=== PATIENT | male | born 1980 | race Caucasian/White ===

== ENCOUNTER 2020-01-25 20:27 | Emergency (ER) | payer OTHER ==
[~2020-01-25] VITALS: Ht 177.8 cm; Wt 83.9 kg
[2020-01-25 21:26] LABS: URINE BILIRUBIN NEGATIVE (Negative); URINE BLOOD NEGATIVE (Negative); URINE CLARITY CLEAR; URINE COLOR YELLOW; URINE GLUCOSE-RANDOM NEGATIVE (Negative); URINE KETONES TRACE (Negative); URINE LEUKOCYTES-REFLEX NEGATIVE (Negative); URINE NITRITE-REFLEX NEGATIVE (Negative); URINE PROTEIN NEGATIVE (Negative); URINE UROBILINOGEN 0.2 E.U./dl (0.2-1.0)
[2020-01-25 21:32] LABS: ABSOLUTE BASOPHILS 0.1 thou/uL (0.0-0.2); ABSOLUTE EOSINOPHILS 0.1 thou/uL (0.0-0.7); ABSOLUTE LYMPHOCYTES 1.6 thou/uL (0.8-5.3); ABSOLUTE MONOCYTES 1.2 thou/uL (0.0-1.2); ABSOLUTE NEUTROPHILS 12.4 thou/uL (1.6-8.1); BASOPHILS 0.3 %; EOSINOPHILS 0.4 %; HEMATOCRIT 42.4 % (42.0-52.0); HEMOGLOBIN 14.8 gm/dL (14.0-18.0); LYMPHOCYTES 10.6 %; MCH 31.2 pg (26.0-34.0); MCHC 34.8 g/dL (28.0-37.0); MCV 89.7 fL (80.0-100.0); MONOCYTES 7.9 %; MPV 7.5 fl. (7.2-11.1); NUCLEATED RBCS 0 /100WBC; PLATELET COUNT* 372 thou/uL (150-400); POLYS 80.8 %; RBC 4.73 mil/uL (4.50-6.00); RDW-CV 12.5 % (10.5-14.5); WBC 15.3 thou/uL (4.0-11.0)
[2020-01-25 21:36] LABS: CALCIUM 8.8 mg/dL (8.5-10.1); POTASSIUM 3.4 mmol/L (3.5-5.1)
[2020-01-25 21:36] LABS: AMP/METHAMP POSITIVE (Negative); BARBITURATES Negative (Negative); BENZODIAZEPINES Negative (Negative); COCAINE Negative (Negative); METHADONE Negative (Negative); OPIATES Negative (Negative); PCP Negative (Negative); THC Negative (Negative)
[2020-01-25 21:40] LABS: ALBUMIN 3.6 g/dL (3.4-5.0); TOTAL BILIRUBIN 0.3 mg/dL (<0.1-1.0); TOTAL PROTEIN 7.3 g/dL (6.4-8.2)
[2020-01-25 22:10] VITALS: BP 133/74
--- NOTE | 2020-01-30 14:59 | EKG ---
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
== END 2020-01-25 22:10 ==
LOC: M.ERS 20:27
PROVIDERS: Personal Emergency Response Attendant
DX: F41.9 Anxiety disorder, unspecified (principal); R06.4 Hyperventilation

== ENCOUNTER 2020-07-10 02:30 | Inpatient (IN) | payer OTHER ==
[~2020-07-10] VITALS: Ht 177.8 cm; Wt 88.5 kg
[2020-07-10 02:37] VITALS: BP 140/81
[2020-07-10] MEDS ORDERED: PROZAC20 M1 PO (02:39)
[2020-07-10] MEDS ORDERED: QUETIAPINE FUM100 MG PO (02:39)
[2020-07-10 03:02] LABS: ABSOLUTE EOSINOPHILS 0.3 thou/uL (0.0-0.7); ABSOLUTE LYMPHOCYTES 2.4 thou/uL (0.8-5.3); ABSOLUTE MONOCYTES 0.5 thou/uL (0.0-1.2); ABSOLUTE NEUTROPHILS 4.9 thou/uL (1.6-8.1); BASOPHILS 0.6 %; EOSINOPHILS 3.4 %; HEMATOCRIT 41.6 % (42.0-52.0); HEMOGLOBIN 14.6 gm/dL (14.0-18.0); LYMPHOCYTES 29.1 %; MCH 32.5 pg (26.0-34.0); MCHC 35.2 g/dL (28.0-37.0); MCV 92.1 fL (80.0-100.0); MONOCYTES 6.6 %; MPV 8.1 fl. (7.2-11.1); NUCLEATED RBCS 0 /100WBC; PLATELET COUNT* 234 thou/uL (150-400); POLYS 60.3 %; RBC 4.51 mil/uL (4.50-6.00); RDW-CV 12.8 % (10.5-14.5); WBC 8.2 thou/uL (4.0-11.0)
[2020-07-10 03:13] LABS: CALCIUM 7.9 mg/dL (8.5-10.1); CREATININE 0.9 mg/dL (0.6-1.3); POTASSIUM 3.9 mmol/L (3.5-5.1)
[2020-07-10 03:17] LABS: ALBUMIN 3.2 g/dL (3.4-5.0); TOTAL BILIRUBIN 0.3 mg/dL (<0.1-1.0); TOTAL PROTEIN 6.4 g/dL (6.4-8.2)
[2020-07-10 03:30] LABS: URINE BILIRUBIN NEGATIVE (Negative); URINE BLOOD NEGATIVE (Negative); URINE CLARITY CLEAR; URINE COLOR YELLOW; URINE GLUCOSE-RANDOM NEGATIVE (Negative); URINE KETONES TRACE (Negative); URINE LEUKOCYTES-REFLEX NEGATIVE (Negative); URINE NITRITE-REFLEX NEGATIVE (Negative); URINE PROTEIN NEGATIVE (Negative); URINE SPECIFIC GRAVITY 1.025 (1.005-1.030); URINE UROBILINOGEN 0.2 E.U./dl (0.2-1.0)
[2020-07-10 05:18] VITALS: BP 129/70
[2020-07-10 05:30] VITALS: BP 136/72
[2020-07-10 08:35] VITALS: BP 123/64
[2020-07-10 20:00] VITALS: BP 118/62
[2020-07-11 04:31] LABS: HEMATOCRIT 39.9 % (42.0-52.0); HEMOGLOBIN 14.3 gm/dL (14.0-18.0); MCH 32.8 pg (26.0-34.0); MCV 91.2 fL (80.0-100.0); MPV 8.2 fl. (7.2-11.1); RBC 4.37 mil/uL (4.50-6.00); RDW-CV 12.6 % (10.5-14.5); WBC 5.8 thou/uL (4.0-11.0)
[2020-07-11 05:03] LABS: CALCIUM 8.1 mg/dL (8.5-10.1); CREATININE 0.8 mg/dL (0.6-1.3); POTASSIUM 3.6 mmol/L (3.5-5.1); TOTAL BILIRUBIN 0.7 mg/dL (<0.1-1.0)
[2020-07-11 07:30] VITALS: BP 128/86
[2020-07-11] MEDS ORDERED: PHENERGAN 25 MG25 M1 PO (09:14)
--- NOTE | 2020-07-11 11:41 | EKG ---
[place] [address] ELECTROCARDIOGRAM REPORT Name: RADHA COTTO NISHA Room: [address] M.R.#: [id number] Admission: 07/10/20 Attend Phys: Trev Florez Discharge: Date of : 76 Date of Service: 07/10/20 0305 Report #: [id number] THIS REPORT FOR: //name// [facility] ED Test Date: 2020-07-10 Test Time: 03:05:54 Pat Name: RADHA COTTO Department: Room: [facility] Gender: M Rn Security: SHARI : 1980 Requested By: Misael Gomez Order Number: [id number] MD: Magnus Marshall Measurements Intervals [place] Rate: 75 P: 49 TX: 139 QRS: 58 QRSD: 100 T: 49 QT: 417 QTc: 466 Interpretive Statements Sinus rhythm Baseline wander in lead(s) V2 Compared to ECG 01/25/2020 20:30:50 No significant changes Electronically Signed On 07-11-2020 11:41:12 CDT by Magnus Marshall [email or web address] <ELECTRONICALLY SIGNED> By: Jonathna Marshall MD, [facility] 07/11/20 1141 0305 0305 Jonathan Marshall MD, [facility] /EPI
[2020-07-11 16:36] VITALS: BP 124/80
[2020-07-11 20:00] VITALS: BP 115/56
[2020-07-11 23:53] VITALS: BP 110/61
[2020-07-12 04:00] VITALS: BP 107/70
[2020-07-12 08:10] VITALS: BP 108/85
[2020-07-12] MEDS ORDERED: OXYCODONE HCL 55 MG PO (08:28)
[2020-07-12 10:44] VITALS: BP 108/85
--- NOTE | 2020-07-13 18:06 | PATH ---
[address] [address] PATHOLOGY RPT PROCEDURE Name: RADHA ALEJANDRO Room: [address] IN M.R.#: [id number] Admission: 07/10/20 Date of : 76 Discharge: 07/12/20 Report #: [id number] Path Case #: [id number] [facility] Accession Number: [id number] . 01 Material submitted: . gallbladder - GALLBLADDER AND CONTENTS . 01 Clinical history: . Cholecystitis . 02 Diagnosis: Gallbladder and contents: - Chronic cholecystitis and cholelithiasis. (NICOLE/db; 07/13/2020) LBQ 07/13/2020 1618 Local . 02 Electronically signed: . Carlos Abdul MD, Pathologist NPI- [id number] . 01 Gross description: . The specimen is received in formalin, labeled "Radha Alejandro, gallbladder and contents". Received is an intact gallbladder measuring 10.2 x 3.4 x 3.2 cm in greatest dimensions displaying a gonzalez-green serosal surface. Opening the specimen reveals a velvety, bile-stained mucosa with a gallbladder wall thickness of 0.1 cm. Calculi are present displaying a black and multifaceted appearance, and no masses or lesions are noted grossly. Personal Lines Insurance Agent sections, to include the proximal margin, are submitted in cassette A1. (CAA; 07/12/2020) QA/[facility] 07/12/2020 1520 Local . 02 Pathologist provided ICD-10: K80.10 . 02 CPT . 120145 Specimen Comment: A courtesy copy of this report has been sent to [phone] Specimen Comment: [phone] Specimen Comment: Report sent to / DR DÍAZ Performed at: [address] [id number] MD Franky Rivera MD Phone: [phone] Performed at: [address] [id number] [place] [address] PATHOLOGY RPT PROCEDURE Name: RADHA ALEJANDRO Room: [address] [place] IN M.R.#: [id number] Admission: 07/10/20 Date of : 76 Discharge: 07/12/20 Report #: [id number] Path Case #: [id number] MD Carlos Abdul MD Phone: [phone]
--- NOTE | 2020-07-14 21:18 | OP ---
[facility] [address] [place] [address] OPERATIVE REPORT Name: RADHA COTTO Room: [address] M.R.#: [id number] Admission: 07/10/20 Attend Phys: Prince Watts Discharge: 07/12/20 Date of : [birth year] Report #: [id number] THIS REPORT FOR: //name// cc: DENZEL Parks family physician/PCP DENZEL - Kasey family physician/PCP ~ THIS REPORT FOR: //name// CC: [facility] physician/PCP Trev Florez DATE OF SERVICE: 07/11/2020 PREOPERATIVE DIAGNOSIS: Acute cholecystitis. POSTOPERATIVE DIAGNOSIS: Acute cholecystitis. PROCEDURE: Laparoscopic cholecystectomy. INDICATIONS FOR PROCEDURE: The patient is a 39-year-old male who presented to the Emergency Department with epigastric pain following a greasy meal. History of present illness, physical exam and imaging were consistent with acute cholecystitis. Risks and benefits of surgery were explained in detail. Risks of bleeding, infection, damage to nearby structures including the common bile duct, hernia, and need for further operations were discussed in detail. The patient voiced understanding and agreed to proceed with surgery. DESCRIPTION OF PROCEDURE: The patient was taken to the operating theater and placed in the supine position. Bilateral SCDs were placed. Preoperative antibiotics were given. General anesthesia was induced without complication. The patient's abdomen was prepped and draped in the standard sterile fashion. Timeout was performed and all were in agreement. A supraumbilical incision was made using an 11 blade scalpel. Subcutaneous tissue was dissected using electrocautery and S retractors were used to bluntly dissect to the midline fascia. The midline fascia was appreciated, it was scored with electrocautery and elevated into the surgical field using Norman clamps. The abdomen was then entered bluntly using a hemostat. Fascial stay sutures were then placed using 0 Vicryl on either edge of the fascia. The Zay trocar was introduced and the abdomen was insufflated. The camera was then introduced and no injury to intraabdominal contents were visualized upon abdominal entry. The patient was then placed in the head up, left side down position. Subxiphoid 5 mm port was placed under direct visualization. Next, two more 5 mm ports were placed in the right subcostal position. The gallbladder was edematous and packed with stones. There were several omental adhesions. Using the physician's assistant port, the gallbladder fundus was grasped and elevated anteriorly and cephalad. Rafaela's pouch was then grasped and taken medially and cephalad. The lateral peritoneum of the gallbladder was taken down using electrocautery[place] [address] OPERATIVE REPORT Name: RADHA COTTO Room: [address] M.R.#: [id number] Admission: 07/10/20 Attend Phys: Prince Watts Discharge: 07/12/20 Date of : [birth year] Report #: [id number] were bluntly swept down off the gallbladder. Next, Rafaela's pouch was taken inferolaterally. The medial gallbladder peritoneum was taken down using electrocautery. With the assistance of a suction commissions analyst device, the fibrofatty tissue in the hepatocystic triangle was swept down. The cystic duct was identified and this was further dissected free from the fatty tissue. Once the fibrofatty tissue had been completely cleared from the hepato cystic triangle medially and laterally, the cystic duct and cystic artery were clearly seen. . There were only 2 structures entering the gallbladder. The liver could be seen in the hepatocystic triangle. We had obtained a critical view. Next, the cystic artery was clipped once proximally and once distally. The cystic duct was clipped twice proximally and once distally. The EndoShears were used to transect the cystic artery and cystic duct between the proximal and distal clips respectively. Next, Rafaela's pouch was taken cephalad and the gallbladder was removed from the gallbladder fossa using electrocautery. An EndoCatch bag was introduced and the gallbladder was placed into the EndoCatch bag and placed to the side. Next, the gallbladder fossa was inspected. Electrocautery was used for hemostasis. The clips were then visualized again. There was no bleeding or bile spillage. The right upper quadrant was thoroughly irrigated until the effluent was clear and suctioned dry. Next, the 5 mm ports were removed under direct visualization. Next, a Zay trocar was removed. Due to the significant stone burden in the gallbladder the midline incision had to be upsized using curved keita scissors. The gallbladder and EndoCatch bag were removed. The midline fascia was then closed using an a 1 PDS in a running fashion. Next, the midline port site subcutaneous tissue was closed using a 3-0 Vicryl in an interrupted fashion. All skin incisions were closed using a 4-0 Monocryl in an interrupted fashion. All wounds were dressed with Steri-Strips, gauze and Tegaderm. This concluded the procedure. All sponge, needle and instrument counts were correct x 2. COMPLICATIONS: None. SPECIMEN: Gallbladder. DRAINS: None. ANESTHESIA: General endotracheal anesthesia. ESTIMATED BLOOD LOSS: 15 [place] [address] OPERATIVE REPORT Name: RADHA COTTO Room: [address]#: [id number] Admission: 07/10/20 Attend Phys: Prince Watts Discharge: 07/12/20 Date of : 76 Report #: [id number] DISPOSITION: The patient was taken to the PACU after being successfully extubated in the operating room in stable condition. <ELECTRONICALLY SIGNED> By: Hema Freedman DO 07/14/20 2118 2158 2211Hema Freedman DO /nt
== END 2020-07-12 12:52 | disposition home or self-care (01) | DRG 419 ==
LOC: M.ERS 02:30 → M.3W 04:26 → M.TBA-ER 04:26 → M.3W 05:26 → M.TBA-ER 05:26 → M.3W 05:26
PROVIDERS: Emergency Medicine Emergency Medical Services; Surgery; ADMIT Internal Medicine; ATTEND Internal Medicine
PROC: 0FT44ZZ Resection of Gallbladder, Percutaneous Endoscopic Approach (ICD-10-PCS; principal; 2020-07-11)
DX: K80.00 Calculus of gallbladder with acute cholecystitis without obstruction (principal); F17.210 Nicotine dependence, cigarettes, uncomplicated; F19.10 Other psychoactive substance abuse, uncomplicated; F32.9 Major depressive disorder, single episode, unspecified; K27.9 Peptic ulcer, site unspecified, unspecified as acute or chronic, without hemorrhage or perforation; Z79.899 Other long term (current) drug therapy; Z72.89 Other problems related to lifestyle; Z03.818 Encounter for observation for suspected exposure to other biological agents ruled out

== ENCOUNTER 2020-07-21 17:51 | Emergency (ER) | payer OTHER ==
[~2020-07-21] VITALS: Ht 177.8 cm; Wt 86.2 kg
[~2020-07-21 17:51] MED LIST: OXYCODONE HCL 55 MG PO; PHENERGAN 25 MG25 M1 PO; PROZAC20 M1 PO; QUETIAPINE FUM100 MG PO
[2020-07-21 18:49] LABS: ABSOLUTE BASOPHILS 0.1 thou/uL (0.0-0.2); ABSOLUTE EOSINOPHILS 0.1 thou/uL (0.0-0.7); ABSOLUTE MONOCYTES 1.2 thou/uL (0.0-1.2); ABSOLUTE NEUTROPHILS 6.8 thou/uL (1.6-8.1); BASOPHILS 0.8 %; EOSINOPHILS 0.9 %; HEMATOCRIT 44.7 % (42.0-52.0); HEMOGLOBIN 15.9 gm/dL (14.0-18.0); LYMPHOCYTES 26.5 %; MCH 32.3 pg (26.0-34.0); MCHC 35.6 g/dL (28.0-37.0); MCV 90.9 fL (80.0-100.0); MONOCYTES 10.7 %; MPV 7.7 fl. (7.2-11.1); NUCLEATED RBCS 0 /100WBC; PLATELET COUNT* 337 thou/uL (150-400); POLYS 61.1 %; RBC 4.92 mil/uL (4.50-6.00); RDW-CV 12.6 % (10.5-14.5); WBC 11.1 thou/uL (4.0-11.0)
[2020-07-21 18:54] LABS: CALCIUM 8.7 mg/dL (8.5-10.1); POTASSIUM 3.4 mmol/L (3.5-5.1)
[2020-07-21 19:07] LABS: ALBUMIN 4.3 g/dL (3.4-5.0); TOTAL BILIRUBIN 0.9 mg/dL (<0.1-1.0)
[2020-07-21 19:39] LABS: URINE BLOOD NEGATIVE (Negative); URINE CLARITY CLEAR; URINE COLOR YELLOW; URINE GLUCOSE-RANDOM NEGATIVE (Negative); URINE KETONES 1+ (Negative); URINE LEUKOCYTES NEGATIVE (Negative); URINE NITRITE NEGATIVE (Negative); URINE PROTEIN TRACE (Negative); URINE SPECIFIC GRAVITY >= 1.030 (1.005-1.030); URINE UROBILINOGEN 0.2 E.U./dl (0.2-1.0)
[2020-07-21 19:40] LABS: ICTOTEST (BILI CONFIRMATORY) Positive (Negative); URINE BILIRUBIN 1+ (Negative)
[2020-07-21 20:42] VITALS: BP 124/70
--- NOTE | 2020-07-22 14:32 | EKG ---
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 : 1980 Requested By: Concepcion Mancini Order Number: [id number] MD: Scot Esparza Measurements Intervals [place] Rate: 83 P: 60 NM: 137 QRS: 47 QRSD: 99 T: 43 QT: 509 QTc: 599 Interpretive Statements Sinus rhythm Possible left atrial enlargement Prolonged QT interval Baseline wander in lead(s) V2 Compared to ECG 07/10/2020 03:05:54 Prolonged QT interval now present Electronically Signed On 07-22-2020 14:32:19 CDT by Scot Esparza [email or web address] <ELECTRONICALLY SIGNED> By: Scot Esparza MD, FACC 07/22/20 1432 1853 185 Scot Esparza MD, FAC /EPI
== END 2020-07-21 20:42 | disposition home or self-care (01) ==
LOC: M.ERS 17:51
PROVIDERS: Physician Assistant
DX: G89.18 Other acute postprocedural pain (principal); R10.84 Generalized abdominal pain; Z90.49 Acquired absence of other specified parts of digestive tract